=== PATIENT | male | born 1955 | race Caucasian/White ===

== ENCOUNTER 2022-10-24 21:28 | Emergency (ER) | payer OTHER, SELFPAY ==
--- NOTE | 2022-10-24 21:27 | ECG_ITS ---
APPROVED REPORT Exam: Resting ECG HR:70 bpm ECG Measurements Heart Rate 70 AXES MO 151 P 68 QRSd 96 QRS 178 QT 356 T 49 QTc 376 Conclusion SINUS RHYTHM INDETERMINATE AXIS POSSIBLE RIGHT VENTRICULAR CONDUCTION DELAY [RSR (QR) IN V1/V2] ABNORMAL ECG UNCONFIRMED REPORT Electronically signed by : Deyvi Tellez MD 10/25/2022 07:12:36
[2022-10-24 21:31] VITALS: BP 138/81; PULSE 71; RESP 20; TEMP 36.7; O2SAT 98; BMI 21.9
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
[2022-10-24 22:00] VITALS: BP 135/88; PULSE 71; RESP 13; O2SAT 94
[2022-10-24 22:03] LABS: Basophils # 0.1 K/mm3 (0-0.2); Basophils % 0.6 % (0.1-2.0); Eosinophils # 0.5 K/mm3 (0.0-0.4); Eosinophils % 3.9 % (0.1-12.0); Hematocrit 47.6 % (42.0-52.0); Hemoglobin 15.5 g/dL (14.1-18.0); Lymphocytes # 2.6 K/mm3 (0.7-4.5); Lymphocytes % 18.6 % (10-50); Mean Corpuscular HGB Conc 32.6 g/dL (31.8-35.4); Mean Corpuscular Volume 92.1 fl (80-94); Mean Platelet Volume 8.9 fl (7.4-10.4); Monocytes # 0.9 K/mm3 (0.1-1.0); Monocytes % 6.4 % (1.7-9.3); Neutrophils # 9.7 K/mm3 (1.8-7.8); Neutrophils % 70.6 % (37.0-80.0); Platelet Count 247 K/mm3 (142-424); Red Blood Count 5.16 M/mm3 (4.60-6.20); White Blood Count 13.8 K/mm3 (4.8-10.8)
[2022-10-24 22:07] LABS: Chloride 98 mmol/L (98-107); Potassium 3.5 mmoL/L (3.5-5.1); Sodium 133 mmol/L (136-145)
[2022-10-24 22:10] LABS: Alanine Aminotransferase 17 U/L (12-78); Albumin Level 3.5 g/dl (3.5-5.0); Alkaline Phosphatase 101 U/L (38-126); Anion Gap 8.5 mEq/L (5-15); Aspartate Amino Transferase 22 U/L (17-59); Bilirubin,Indirect 0.4 mg/dL (0.0-0.9); Bilirubin,Total 0.4 mg/dl (0.2-1.3); Bilirubin,Unconjugated 0.5 mg/dL (0.0-1.1); Blood Urea Nitrogen 8 mg/dl (9-20); Calcium 7.9 mg/dl (8.4-10.2); Carbon Dioxide 30 mmol/L (22.0-30.0); Creatinine Clearance Estimated 86 mL/min (50-200); Estimated Glomerular Filt Rate 97 ml/min (>60); GFR (African American) 118 ML/MIN (>60); Glucose 199 mg/dl (74-100)
[2022-10-24 22:30] VITALS: BP 142/89; PULSE 65; RESP 16; O2SAT 96
--- NOTE | 2022-10-24 23:00 | PC.NURSE ---
Rounded on pt. Pt updated on expected wait times. No needs or complaints voiced at this time.
[2022-10-24 23:01] VITALS: BP 160/84; PULSE 71; RESP 23; O2SAT 94
--- NOTE | 2022-10-24 23:20 | PC.NURSE ---
Dr Diaz s/w pt
[2022-10-24 23:25] LABS: Troponin I < 0.01 ng/ml (0.00-0.034)
[2022-10-24 23:31] VITALS: BP 140/82; RESP 19; O2SAT 95
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
[2022-10-25] VITALS: BP 145/83; PULSE 64; RESP 20; O2SAT 96
[2022-10-25 00:30] VITALS: BP 137/78; PULSE 64; O2SAT 95
[2022-10-25 00:37] LABS: Troponin I 0.01 ng/ml (0.00-0.034)
[2022-10-25 01:00] VITALS: BP 145/85; PULSE 64; RESP 21; O2SAT 95
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
--- NOTE | 2022-10-25 01:30 | PC.NURSE ---
Rounded on pt. No needs or complaints voiced.
[2022-10-25 02:21] VITALS: BP 132/84; PULSE 75; RESP 18; TEMP 36.6
== END 2022-10-25 02:22 | disposition home or self-care (01) ==
PROVIDERS: Emergency Provider Emergency Medicine; PCP Pediatrics
DX: S20.219A Contusion of unspecified front wall of thorax, initial encounter (principal); M54.12 Radiculopathy, cervical region; M79.632 Pain in left forearm; M25.512 Pain in left shoulder; V47.0XXA Car driver injured in collision with fixed or stationary object in nontraffic accident, initial encounter; F17.200 Nicotine dependence, unspecified, uncomplicated
CPT/HCPCS: 70450; 71275; 72125; 72131; 73030; 73060; 73090; 80048; 80076; 84484; 85025; 93005; 96374; 96375; 99285; J0131; Q9967